=== PATIENT | male | born 2000 | race Caucasian/White ===

== ENCOUNTER 2022-10-26 12:04 | Outpatient (CLI) | payer OTHER, SELFPAY ==
[2022-10-26 21:58] LABS: Albumin* 4.6 g/dL (3.3-5.0); Chloride* 107 mmol/L (96-114); Potassium* 4.3 mmol/L (3.6-5.1); Sodium* 143 mmol/L (135-149)
[2022-10-26 22:00] LABS: Aspartate Amino Transferase* 25 U/L (12-35); Bilirubin Total* 0.7 mg/dL (0.1-1.5); Creatinine* 0.8 mg/dL (0.6-1.2); Estimated Glomerular Filt Rate 131 ml/min
[2022-10-26 22:01] LABS: Alanine Aminotransferase* 23 U/L (4-50); Alkaline Phosphatase* 75 U/L (65-260); Blood Urea Nitrogen* 16 mg/dL (5-24); Calcium* 9.6 mg/dL (8.7-10.8); Carbon Dioxide* 25 mmol/L (20-32); Glucose* 92 mg/dL (60-115); Total Protein* 7.4 g/dL (6.0-8.3)
[2022-10-26 22:02] LABS: Vitamin D 25 Hydroxy* 34 ng/mL (30-80)
== END 2022-10-26 12:05 | disposition home or self-care (01) ==
LOC: LKVREF 12:04
PROVIDERS: PCP Family Medicine; Visit Provider Nurse Practitioner Family
DX: F41.9 Anxiety disorder, unspecified (principal); F32.A Depression, unspecified; Z79.899 Other long term (current) drug therapy
CPT/HCPCS: 80053; 82306; 84443